=== PATIENT | male | born 1990 | race Caucasian/White ===

== ENCOUNTER → 2016-03-16 | Outpatient (CLI) | payer BC ==
[~2016-03-16] MED LIST: ADVIN10/60 INH; ALBUAER2 INH; ASTNS; LISI5TAB3 PO; MEDLIST
--- NOTE | 2016-03-16 09:07 | DIAGNOSTIC IMAGING REPORT ---
Chest wall ultrasonography CLINICAL HISTORY: Chest wall mass COMPARISON STUDY: No previous studies for comparison. FINDINGS: Medial to the right nipple, there is a lobulated hypoechoic vascular nodule measuring 7 x 6 x 4 mm. This appears to lie within the skin and likely represents a skin adnexal lesion. IMPRESSION: Ultrasound confirms the presence of a 7 x 6 x 4 mm vascular lobulated hypoechoic nodule corresponding to the palpable abnormality. This appears to be located within the skin and therefore likely represents a skin adnexal lesion. Electronically signed by: Rick Fernandez M.D. 03/16/2016 9:06 AM Dictated Date/Time: 03/16/2016 9:03 AM
--- NOTE | 2016-03-17 06:30 | CODING QUERY NO DIAGNOSIS ---
: 04/30/1944 TREATMENT RENDERED WITHOUT A DIAGNOSIS To promote full compliance with coding requirements relating to patient care, physician participation is requested in all cases of ham smoker uncertainty. Please assist us with providing a diagnosis/symptom for the test(s) below: A diagnosis/symptom was not documented on your Order. A valid diagnosis/symptom is required to bill all insurances. Please remember that we are unable to code a diagnosis of rule out, probable, possible, questionable, or suspected. Tests that require a diagnosis: DOS: 03/12/16 * UA Clean Catch With Microscopic DIAGNOSIS: * Urine Protein/Creatinine Ratio DIAGNOSIS: Provider Signature: Date: Thank you Tesha [facility] Information Management Once completed, please kindly fax back to [phone] For questions please call [phone]
== END | disposition home or self-care (01) ==
LOC: C.ULTR 08:35
PROVIDERS: ATTEND Internal Medicine
DX: R22.2 Localized swelling, mass and lump, trunk (principal)

== ENCOUNTER → 2016-03-30 | Outpatient (CLI) | payer BC | END | disposition home or self-care (01) | LOC: C.PATHSPEC 17:14 | PROVIDERS: ATTEND Surgery | DX: R22.2 Localized swelling, mass and lump, trunk (principal) ==